=== PATIENT | female | born 1995 | race Caucasian/White ===

== ENCOUNTER 2018-10-10 16:07 | Emergency (ER) | payer OTHER ==
[2018-10-10 16:58] VITALS: BP 119/82; PULSE 85; RESP 18; TEMP 98.2
[2018-10-10] MEDS ORDERED: ACETAMINOPHEN TAB 325 MG TAB PO STA (19:11)
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
== END 2018-10-10 20:22 | disposition home or self-care (01) ==
LOC: EC 16:07
DX: R51 Headache (principal); R42 Dizziness and giddiness; J34.89 Other specified disorders of nose and nasal sinuses; F17.200 Nicotine dependence, unspecified, uncomplicated; Z88.8 Allergy status to other drugs, medicaments and biological substances; Z88.5 Allergy status to narcotic agent; Y04.8XXA Assault by other bodily force, initial encounter
CPT/HCPCS: 70110; 70160; 70450; 71046; 72125; 99284

== ENCOUNTER 2019-01-22 14:46 | Emergency (ER) | payer OTHER ==
[2019-01-22 14:55] VITALS: RESP 18
[2019-01-22 16:28] LABS: Basophils % (A) 0 %; Eosinophils # (A) 0.1 k/uL (0-0.7); Eosinophils % (A) 2 %; HCT 41.6 % (34.0-46.0); HGB 13.6 gm/dL (11.4-16.0); Lymphocytes # (A) 1.4 k/uL (1.0-4.8); Lymphocytes % (A) 26 %; MCHC 32.6 g/dL (31.0-37.0); MCV 85.9 fL (80.0-100.0); Monocytes # (A) 0.2 k/uL (0-1.0); Monocytes % (A) 5 %; Neutrophils # (A) 3.5 k/uL (1.3-7.7); Neutrophils % (A) 66 %; Platelet Count 303 k/uL (150-450); RBC 4.85 m/uL (3.80-5.40); RDW 13.7 % (11.5-15.5); WBC 5.4 k/uL (3.8-10.6)
[2019-01-22] MEDS ORDERED: SODIUM CHLORIDE 0.9% 500 ML 500 ML IV ONE (16:29)
[2019-01-22 16:37] LABS: ALT 12 U/L (9-52); AST 16 U/L (14-36); Albumin 4.2 g/dL (3.5-5.0); Alkaline Phosphatase 49 U/L (38-126); Amylase 92 U/L (30-110); Anion Gap 3 mmol/L; Blood Urea Nitrogen 7 mg/dL (7-17); Calcium 9.6 mg/dL (8.4-10.2); Carbon Dioxide 25 mmol/L (22-30); Chloride 110 mmol/L (98-107); Glucose 92 mg/dL (74-99); Lipase 164 U/L (23-300); Potassium 4.4 mmol/L (3.5-5.1); Sodium 138 mmol/L (137-145); Total Bilirubin 0.4 mg/dL (0.2-1.3); Total Protein 6.8 g/dL (6.3-8.2)
[2019-01-22 16:43] LABS: Appearance,Urine Clear (Clear); Bilirubin,Urine Negative (Negative); Blood,Urine Negative (Negative); Color,Urine Light Yellow; Glucose,Urine (UA) Negative (Negative); Ketones,Urine Negative (Negative); Leukocyte Esterase,Urine Moderate (Negative); Mucus,Urine Rare /hpf; Nitrite,Urine Negative (Negative); PH, Urine 7.5 (5.0-8.0); Protein,Urine Negative (Negative); RBC,Urine 1 /hpf (0-5); Specific Gravity,Urine 1.006 (1.001-1.035); Squamous Epithelial Cell,Urine 2 /hpf (0-4); Urobilinogen,Urine <2.0 mg/dL (<2.0); WBC,Urine 12 /hpf (0-5)
--- NOTE | 2019-01-22 16:56 | ED ---
Abdominal Pain HPI - General Chief Complaint: Abdominal Pain Stated Complaint: abdominal pain x 4 days Time Seen by Provider: 01/22/19 15:35 Source: patient Mode of arrival: ambulatory Limitations: no limitations - History of Present Illness Initial Comments: 23-year-old female presented for abdominal pain. Sensation she has had right upper, quadrant pain that came and went on . She states that this subsided and she had pain in her bellybutton mostly right-sided. Patient states she smoked some nausea she denies vomiting she denies diarrhea she states that she has been eating and drinking. Patient states she had a normal bowel movement she states her bowels have been increased. Patient states her last menstrual period was the end of December. Patient denies any vaginal bleeding or vaginal discharge or pelvic pain. Patient states she does have history of Medullary kidney disease with history of chronic nephrolithiasis however patient states that she has not had any back pain or pain that felt similar to when she had kidney stones in the past denies any dysuria urgency frequency or hematuria. She denies melena hematochezia fever chills or night sweats. We will give persisted today patient presented for evaluation. Patient does have history of previous cholecystectomy. Remaining review of system negative. Patient denies - Related Data Previous Rx's Medication Instructions Recorded Acetaminophen Tab [Tylenol] 1,000 mg PO TID 5 Days tablet 10/10/18 Cephalexin [Keflex] 500 mg PO Q12HR 5 Days #10 cap 01/22/19 Allergies Allergy/AdvReac Type Severity Reaction Status Date / Time famotidine [From Pepcid] Allergy Nausea & Verified 01/22/19 14:55 Vomiting morphine Allergy Nausea & Verified 01/22/19 14:55 Vomiting Review of Systems ROS Statement: Those systems with pertinent positive or pertinent negative responses have been documented in the HPI. ROS Other: All systems not noted in ROS Statement are negative. Past Medical History Additional Past Medical History / Comment(s): medulary sponge kidney disease History of Any Multi-Drug Resistant Organisms: None Reported Past Surgical History: Cholecystectomy Past Psychological History: Anxiety, Depression Smoking Status: Former smoker Past Alcohol Use History: Occasional Past Drug Use History: None Reported General Exam - General Exam Comments Initial Comments: General: The patient is awake and alert, in no distress, and does not appear acutely ill. Eye: Pupils are equal, round and reactive to light, extra-ocular movements are intact. No nystagmus. There is normal conjunctiva bilaterally. No signs of icterus. Ears, nose, mouth and throat: There are moist mucous membranes and no oral lesions. Neck: The neck is supple, there is no tenderness or JVD. Cardiovascular: There is a regular rate and rhythm. No murmur, rub or gallop is appreciated. Respiratory: Lungs are clear to auscultation, respirations are non-labored, breath sounds are equal. No wheezes, stridor, rales, or rhonchi. Gastrointestinal: Soft, non-distended, mild tenderness to palpation of the right mid aspect of abdomen near umbilicus. There is no direct periumbilical pain or right lower quadrant pain negative McBurney sign. Negative Hogan sign. No epigastric pain No organomegaly noted. There is no rebound or guarding present. No CVA tenderness. Bowel sounds are unremarkable. Musculoskeletal: Normal ROM, no tenderness. Strength 5/5. Sensation intact. Pulses equal bilaterally 2+. Neurological: A&O x 3. CN II-XII intact, There are no obvious motor or sensory deficits. Coordination appears grossly intact. Speech is normal. Skin: Skin is warm and dry and no rashes or lesions are noted. Psychiatric: Cooperative, appropriate mood & affect, normal judgment. Limitations: no limitations Course Vital Signs 01/22/19 01/22/19 14:52 19:00 Temperature 98.5 F 97.6 F Pulse Rate 78 60 Respiratory 18 18 Rate Blood Pressure 131/90 126/86 O2 Sat by Pulse 98 96 Oximetry Medical Decision Making - Medical Decision Making Well-appearing 23-year-old female presenting for abdominal pain x4 days. Patient is is mostly right sided mid abdomen. Upon examination there is very mild tenderness along the right side abdomen in line with the umbilicus. Patient showed no signs of rebound tenderness or guarding rigidity. No peritoneal irritation. CT revealed no acute process. Patient denies any infectious symptoms. Urinalysis revealed findings consistent with developing urinary tract infection. Patient be treated with Keflex 500 mg twice a day. Patient hCG negative. This time feel patient is stable for discharge with return parameters for increasing or worsening pain. Patient is agreeable care plan as well as discharged today. Patient was discharged appearing well. I discussed case with attending provider Dr. Almodovar who was agreeable with plan. Patient is to follow-up with primary care provider she verbalized understanding of the importance of follow-up - Lab Data Result diagrams: 01/22/19 16:16 01/22/19 16:16 Lab Results 01/22/19 01/22/19 01/22/19 Range/Units 16:16 16:16 16:29 WBC 5.4 (3.8-10.6) k/uL RBC 4.85 (3.80-5.40) m/uL Hgb 13.6 (11.4-16.0) gm/dL Hct 41.6 (34.0-46.0) % MCV 85.9 (80.0-100.0) fL MCH 28.0 (25.0-35.0) pg MCHC 32.6 (31.0-37.0) g/dL RDW 13.7 (11.5-15.5) % Plt Count 303 (150-450) k/uL Neutrophils % 66 % Lymphocytes % 26 % Monocytes % 5 % Eosinophils % 2 % Basophils % 0 % Neutrophils # 3.5 (1.3-7.7) k/uL Lymphocytes # 1.4 (1.0-4.8) k/uL Monocytes # 0.2 (0-1.0) k/uL Eosinophils # 0.1 (0-0.7) k/uL Basophils # 0.0 (0-0.2) k/uL Sodium 138 (137-145) mmol/L Potassium 4.4 (3.5-5.1) mmol/L Chloride 110 H (98-107) mmol/L Carbon Dioxide 25 (22-30) mmol/L Anion Gap 3 mmol/L BUN 7 (7-17) mg/dL Creatinine 0.66 (0.52-1.04) mg/dL Est GFR (CKD-EPI)AfAm >90 (>60 ml/min/1.73 sqM) Est GFR (CKD-EPI)NonAf >90 (>60 ml/min/1.73 sqM) Glucose 92 (74-99) mg/dL Calcium 9.6 (8.4-10.2) mg/dL Total Bilirubin 0.4 (0.2-1.3) mg/dL AST 16 (14-36) U/L ALT 12 (9-52) U/L Alkaline Phosphatase 49 (38-126) U/L Total Protein 6.8 (6.3-8.2) g/dL Albumin 4.2 (3.5-5.0) g/dL Amylase 92 (30-110) U/L Lipase 164 (23-300) U/L Urine Color Urine Appearance (Clear) Urine pH (5.0-8.0) Ur Specific [place] (1.001-1.035) Urine Protein (Negative) Urine Glucose (UA) (Negative) Urine Ketones (Negative) Urine Blood (Negative) Urine Nitrite (Negative) Urine Bilirubin (Negative) Urine Urobilinogen (<2.0) mg/dL Ur Leukocyte Esterase (Negative) Urine RBC (0-5) /hpf Urine WBC (0-5) /hpf Ur Squamous Epith Cells (0-4) /hpf Urine Mucus (None) /hpf Urine HCG, Qual Not Detected (Not Detectd) 01/22/19 Range/Units 16:29 WBC (3.8-10.6) k/uL RBC (3.80-5.40) m/uL Hgb (11.4-16.0) gm/dL Hct (34.0-46.0) % MCV (80.0-100.0) fL MCH (25.0-35.0) pg MCHC (31.0-37.0) g/dL RDW (11.5-15.5) % Plt Count (150-450) k/uL Neutrophils % % Lymphocytes % % Monocytes % % Eosinophils % % Basophils % % Neutrophils # (1.3-7.7) k/uL Lymphocytes # (1.0-4.8) k/uL Monocytes # (0-1.0) k/uL Eosinophils # (0-0.7) k/uL Basophils # (0-0.2) k/uL Sodium (137-145) mmol/L Potassium (3.5-5.1) mmol/L Chloride (98-107) mmol/L Carbon Dioxide (22-30) mmol/L Anion Gap mmol/L BUN (7-17) mg/dL Creatinine (0.52-1.04) mg/dL Est GFR (CKD-EPI)AfAm (>60 ml/min/1.73 sqM) Est GFR (CKD-EPI)NonAf (>60 ml/min/1.73 sqM) Glucose (74-99) mg/dL Calcium (8.4-10.2) mg/dL Total Bilirubin (0.2-1.3) mg/dL AST (14-36) U/L ALT (9-52) U/L Alkaline Phosphatase (38-126) U/L Total Protein (6.3-8.2) g/dL Albumin (3.5-5.0) g/dL Amylase (30-110) U/L Lipase (23-300) U/L Urine Color Light Yellow Urine Appearance Clear (Clear) Urine pH 7.5 (5.0-8.0) Ur Specific [place] 1.006 (1.001-1.035) Urine Protein Negative (Negative) Urine Glucose (UA) Negative (Negative) Urine Ketones Negative (Negative) Urine Blood Negative (Negative) Urine Nitrite Negative (Negative) Urine Bilirubin Negative (Negative) Urine Urobilinogen <2.0 (<2.0) mg/dL Ur Leukocyte Esterase Moderate H (Negative) Urine RBC 1 (0-5) /hpf Urine WBC 12 H (0-5) /hpf Ur Squamous Epith Cells 2 (0-4) /hpf Urine Mucus Rare H (None) /hpf Urine HCG, Qual (Not Detectd) Disposition Clinical Impression: Abdominal pain Disposition: HOME SELF-CARE Condition: Good Instructions (If sedation given, give patient instructions): Abdominal Pain (ED) Additional Instructions: Please use medication as discussed. Please follow-up with family doctor in the next 2 days. Please return to emergency room if the symptoms increase or worsen or for any other concerns. Prescriptions: Cephalexin [Keflex] 500 mg PO Q12HR 5 Days #10 cap Is patient prescribed a controlled substance at d/c from ED?: No Referrals: None,Stated [Primary Care Provider[facility] - [facility]2 days Time of Disposition: 18:22
--- NOTE | 2019-01-22 17:50 | CT ---
EXAMINATION TYPE: CT abdomen pelvis w con DATE OF EXAM: 01/22/2019 COMPARISON: None. HISTORY: ABDOMIAL PAIN X4 DAYS. CT DLP: 674.8 mGycm Automated exposure control for dose reduction was used. TECHNIQUE: Helical acquisition of images was performed from the lung bases through the pelvis. CONTRAST: Performed without Oral Contrast and with IV Contrast, patient injected with 100 mL of Isovue 300. FINDINGS: LUNG BASES: No significant abnormality. LIVER/GB: No significant abnormality. The gallbladder is surgically absent. PANCREAS: No significant abnormality. SPLEEN: No significant abnormality. ADRENALS: No significant abnormality. KIDNEYS: No significant abnormality. FREE AIR: No free air is visualized. RETROPERITONEAL ADENOPATHY: None visualized REPRODUCTIVE ORGANS: No significant abnormality URINARY BLADDER: No significant abnormality. PELVIC ADENOPATHY: None. OSSEOUS STRUCTURES: No significant abnormality. BOWEL: No significant abnormality. Normal appendix. IMPRESSION: NO FINDINGS TO EXPLAIN PATIENT'S ABDOMINAL PAIN.
[2019-01-22 19:01] VITALS: BP 126/86; PULSE 60; TEMP 97.6
== END 2019-01-22 19:01 | disposition home or self-care (01) ==
LOC: EC 14:46
DX: R10.11 Right upper quadrant pain (principal); R11.0 Nausea; Z87.891 Personal history of nicotine dependence; Z88.5 Allergy status to narcotic agent; Z88.8 Allergy status to other drugs, medicaments and biological substances; Z90.49 Acquired absence of other specified parts of digestive tract
CPT/HCPCS: 36415; 80053; 82150; 83690; 85025; 81001; 81025; 74177; 99284; 96360; Q9967

== ENCOUNTER 2019-03-15 16:45 | Emergency (ER) | payer OTHER ==
[2019-03-15 17:10] VITALS: BP 108/72; PULSE 67; RESP 16; TEMP 98.3
[2019-03-15] MEDS ORDERED: DEXAMETHASONE SOD PHOSPHATE 4 MG/ML 1 ML VIAL IM STA (17:40)
--- NOTE | 2019-03-15 18:06 | ED ---
ENT HPI - General Chief complaint: ENT Stated complaint: Throat pain Source: patient Mode of arrival: ambulatory Limitations: no limitations - History of Present Illness Initial comments: Patient is a 23-year-old female presents emergency Department with a sore throat. Patient reports waking up this morning with a sore throat and noticed with exudates on bilateral tonsils. Patient reports pain with swallowing but denies drooling or difficulty breathing. Patient denies cough, nausea, vomiting or diarrhea. Patient denies rhinorrhea, headache or otalgia. Patient does have a history of strep pharyngitis. Patient reports the pain is alleviated with saltwater washes. Patient denies taking any medication to alleviate the symptoms. - Related Data Previous Rx's Medication Instructions Recorded Acetaminophen Tab [Tylenol] 1,000 mg PO TID 5 Days tablet 10/10/18 Cephalexin [Keflex] 500 mg PO Q12HR 5 Days #10 cap 01/22/19 Amoxicillin 500 mg PO Q8H #30 capsule 03/15/19 Allergies Allergy/AdvReac Type Severity Reaction Status Date / Time famotidine [From Pepcid] Allergy Nausea & Verified 03/15/19 17:09 Vomiting morphine Allergy Nausea & Verified 03/15/19 17:09 Vomiting Review of Systems ROS Statement: Those systems with pertinent positive or pertinent negative responses have been documented in the HPI. ROS Other: All systems not noted in ROS Statement are negative. Past Medical History Additional Past Medical History / Comment(s): medulary sponge kidney disease History of Any Multi-Drug Resistant Organisms: None Reported Past Surgical History: Cholecystectomy Past Psychological History: Anxiety, Depression Smoking Status: Former smoker Past Alcohol Use History: Occasional Past Drug Use History: None Reported General Exam - General Exam Comments Initial Comments: General: Well-developed well-nourished distress HEENT: Normocephalic/atraumatic, PERLL, bilaterally enlarged and erythematous tonsils with white exudates Neck: Supple, nontender, trachea midline Chest/Lungs: Normal respirations, no signs of respiratory distress clear to auscultation bilaterally no wheezes, rales, rhonchi Cardiac: Regular rate and rhythm, normal S1-S2, no murmurs rubs or gallops Abdomen/GI: Soft nontender, bowel sounds equal or quadrant x4, no guarding, no rebound no CVA tenderness : Deferred Musculoskeletal: Nontender, full range of motion, no edema, strength equal bilaterally Skin: Warmth, no rashes or lesions, no cyanosis or diaphoresis Neurologic: AAO x 3, CN 2-12 intact, Psychiatric: Mood and affect normal, judgment normal Limitations: no limitations Course Vital Signs 03/15/19 17:07 Temperature 98.3 F Pulse Rate 67 Respiratory 16 Rate Blood Pressure 108/72 O2 Sat by Pulse 99 Oximetry Medical Decision Making - Medical Decision Making Patient is a 23-year-old female presenting to emergency Department with a sore throat. Patient does fit the [facility] criteria for strep pharyngitis. Rapid strep is also positive. Patient will be treated with a 10 day course of amoxicillin. Strict return parameters were thoroughly discussed with patient was understanding and agreeable. Patient advised to follow with primary care. Case discussed with physician. - Lab Data Lab Results 03/15/19 Range/Units 17:33 Group A Strep Rapid Positive A (Negative) Disposition Clinical Impression: Strep pharyngitis Disposition: HOME SELF-CARE Condition: Stable Instructions (If sedation given, give patient instructions): Strep Throat (ED), Strep Throat (DC) Additional Instructions: Please take prescribed medication as directed. Please follow-up with primary care. Please return to emergency department if symptoms worsen. Prescriptions: Amoxicillin 500 mg PO Q8H #30 capsule Is patient prescribed a controlled substance at d/c from ED?: No Referrals: None,Stated [Primary Care Provider] - 1-2 days Time of Disposition: 18:07
== END 2019-03-15 18:31 | disposition home or self-care (01) ==
LOC: EC 16:45
DX: J02.0 Streptococcal pharyngitis (principal); Q61.5 Medullary cystic kidney; Z87.891 Personal history of nicotine dependence; Z88.5 Allergy status to narcotic agent; Z88.8 Allergy status to other drugs, medicaments and biological substances
CPT/HCPCS: 87430; 99283; 96372; J1100

== ENCOUNTER 2019-09-26 15:25 | Emergency (ER) | payer OTHER ==
[2019-09-26 15:29] VITALS: BP 137/90; PULSE 73; RESP 16; TEMP 98.4
--- NOTE | 2019-09-26 16:14 | XR ---
EXAMINATION TYPE: XR knee complete RT DATE OF EXAM: 09/26/2019 COMPARISON: NONE HISTORY: Pain TECHNIQUE: Four views are submitted. FINDINGS: Joint spaces are preserved. Osseous structures are intact. No acute fracture seen. Lung the medial aspect of the proximal diaphysis the tibia there is a bony protuberance. Small amount of fluid in th e suprapatellar bursa. IMPRESSION: 1. No acute fracture or dislocation. Bony protuberance off the proximal medial aspect of the diaphys is right tibia. This could represent a osteochondroma. Recommend follow-up MRI. 2. Small amount of fluid in the suprapatellar bursa.
[2019-09-26] MEDS ORDERED: traMADol 50 MG STARTER PACK 3 TAB BTL PO STA (16:30)
--- NOTE | 2019-09-26 16:31 | ED ---
Lower Extremity Injury HPI - General Chief Complaint: Extremity Injury, Lower Stated Complaint: knee injury Time Seen by Provider: 09/26/19 15:37 Source: patient, RN notes reviewed Mode of arrival: ambulatory Limitations: no limitations - History of Present Illness Initial Comments: 23-year-old female presents emergency Department chief complaint of right knee pain. Patient states that she had her leg crossed over her left states that she was in this position for several hours states that she went to move and felt a pop. She complains of severe pain in the medial aspect and underneath over her patella. Patient denies any prior injuries. Patient states it is swollen. Patient states is painful to ambulate. Denies any Pain, swelling, discoloration - Related Data Previous Rx's Medication Instructions Recorded Acetaminophen Tab [Tylenol] 1,000 mg PO TID 5 Days tablet 10/10/18 Cephalexin [Keflex] 500 mg PO Q12HR 5 Days #10 cap 01/22/19 Amoxicillin 500 mg PO Q8H #30 capsule 03/15/19 Ibuprofen [Motrin] 600 mg PO Q8HR PRN #30 tab 09/26/19 Allergies Allergy/AdvReac Type Severity Reaction Status Date / Time famotidine [From Pepcid] Allergy Nausea & Verified 09/26/19 15:29 Vomiting morphine Allergy Nausea & Verified 09/26/19 15:29 Vomiting Review of Systems ROS Statement: Those systems with pertinent positive or pertinent negative responses have been documented in the HPI. ROS Other: All systems not noted in ROS Statement are negative. Past Medical History Past Medical History: Renal Disease Additional Past Medical History / Comment(s): medulary sponge kidney disease History of Any Multi-Drug Resistant Organisms: None Reported Past Surgical History: Cholecystectomy Past Psychological History: Anxiety, Depression Smoking Status: Former smoker Past Alcohol Use History: Occasional Past Drug Use History: None Reported General Exam Limitations: no limitations General appearance: alert, in no apparent distress Head exam: Present: atraumatic, normocephalic, normal inspection Eye exam: Present: normal appearance, PERRL, EOMI. Absent: scleral icterus, conjunctival injection, periorbital swelling Respiratory exam: Present: normal lung sounds bilaterally. Absent: respiratory distress, wheezes, rales, rhonchi, stridor Cardiovascular Exam: Present: regular rate, normal rhythm, normal heart sounds. Absent: systolic murmur, diastolic murmur, rubs, gallop, clicks Extremities exam: Present: other (Right knee full range of motion with moderate discomfort full extension, full flexion there is mild swelling on the medial aspect and over the patellar region no laxity noted). Absent: pedal edema, calf tenderness Neurological exam: Present: alert, oriented X3 Skin exam: Present: warm, dry, intact, normal color. Absent: rash Course Vital Signs 09/26/19 15:26 Temperature 98.4 F Pulse Rate 73 Respiratory 16 Rate Blood Pressure 137/90 O2 Sat by Pulse 99 Oximetry Medical Decision Making - Medical Decision Making X-rays shows possible cartilage or bony overgrowth and some mild effusion. Patient will follow-up with orthopedics for an MRI she was updated on these results and the importance of following up. Disposition Clinical Impression: Right knee sprain Disposition: HOME SELF-CARE Condition: Stable Instructions (If sedation given, give patient instructions): Knee Sprain (ED) Additional Instructions: Follow-up with orthopedics for possible MRI as discussed.Please return to the Emergency Department if symptoms worsen or any other concerns. Prescriptions: Ibuprofen [Motrin] 600 mg PO Q8HR PRN #30 tab PRN Reason: Pain Is patient prescribed a controlled substance at d/c from ED?: No Referrals: None,Stated [Primary Care Provider] - 1-2 days Harjit Slater DO [Doctor of Osteopathic Medicine] - 1-2 days Time of Disposition: 16:30
== END 2019-09-26 16:36 | disposition home or self-care (01) ==
LOC: EC 15:25
DX: S83.91XA Sprain of unspecified site of right knee, initial encounter (principal); Z87.891 Personal history of nicotine dependence; Z88.8 Allergy status to other drugs, medicaments and biological substances; Z88.5 Allergy status to narcotic agent
CPT/HCPCS: 99283

== ENCOUNTER 2019-10-10 07:07 | Emergency (ER) | payer OTHER ==
[2019-10-10 07:13] VITALS: BP 139/71; PULSE 85; RESP 18
[2019-10-10 07:30] VITALS: TEMP 102.3
[2019-10-10] MEDS ORDERED: IBUPROFEN 800 MG TAB PO STA (07:30)
[2019-10-10] MEDS ORDERED: ACETAMINOPHEN TAB 500 MG TAB PO STA (07:30)
--- NOTE | 2019-10-10 07:35 | ED ---
General Adult HPI - General Chief complaint: Upper Respiratory Infection Stated complaint: poss flu Time Seen by Provider: 10/10/19 07:10 Source: patient, RN notes reviewed, old records reviewed Mode of arrival: ambulatory Limitations: no limitations - History of Present Illness Initial comments: This is a 23-year-old female who comes to the emergency department stating that she thinks she has the flu because her son had it and since Wednesday morning she has been having body aches and fever. Patient states today she couldn't stand it body aches anymore so in emergency department. Patient states she did not any medication this morning. Patient does complain of a headache and body aches particularly in her arms and legs. Patient denies any stiff neck. Patient denies any difficulty breathing or shortness of breath per patient denies any chest pain. Patient denies any abdominal pain patient denies nausea vomiting diarrhea. Patient denies any areas of redness or swelling. - Related Data Previous Rx's Medication Instructions Recorded Acetaminophen Tab [Tylenol] 1,000 mg PO TID 5 Days tablet 10/10/18 Cephalexin [Keflex] 500 mg PO Q12HR 5 Days #10 cap 01/22/19 Amoxicillin 500 mg PO Q8H #30 capsule 03/15/19 Ibuprofen [Motrin] 600 mg PO Q8HR PRN #30 tab 09/26/19 Allergies Allergy/AdvReac Type Severity Reaction Status Date / Time famotidine [From Pepcid] Allergy Nausea & Verified 09/26/19 15:29 Vomiting morphine Allergy Nausea & Verified 09/26/19 15:29 Vomiting Review of Systems ROS Statement: Those systems with pertinent positive or pertinent negative responses have been documented in the HPI. ROS Other: All systems not noted in ROS Statement are negative. Past Medical History Past Medical History: Renal Disease Additional Past Medical History / Comment(s): medulary sponge kidney disease History of Any Multi-Drug Resistant Organisms: None Reported Past Surgical History: Cholecystectomy Past Psychological History: Anxiety, Depression Smoking Status: Former smoker Past Alcohol Use History: Occasional Past Drug Use History: None Reported General Exam - General Exam Comments Initial Comments: GENERAL: Patient is well-developed and well-nourished. Patient is nontoxic and well- hydrated and is in mild distress. ENT: Neck is soft and supple. No significant lymphadenopathy is noted. Oropharynx is clear. Moist mucous membranes. Neck has full range of motion without eliciting any pain. EYES: The sclera were anicteric and conjunctiva were pink and moist. Extraocular movements were intact and pupils were equal round and reactive to light. Eyelids were unremarkable. PULMONARY: Unlabored respirations. Good breath sounds bilaterally. No audible rales rhon chi or wheezing was noted. CARDIOVASCULAR: There is a regular rate and rhythm without any murmurs gallops or rubs. ABDOMEN: Soft and nontender with normal bowel sounds. SKIN: Skin is clear with no lesions or rashes and otherwise unremarkable. NEUROLOGIC: Patient is alert and oriented x3. Cranial nerves II through XII are grossly intact. Motor and sensory are also intact. Normal speech, volume and content. Symmetrical smile. MUSCULOSKELETAL: Normal extremities with adequate strength and full range of motion. LYMPHATICS: No significant lymphadenopathy is noted PSYCHIATRIC: Normal psychiatric evaluation. Limitations: no limitations Course Vital Signs 10/10/19 10/10/19 07:11 07:29 Temperature 100.3 F H 102.3 F H Pulse Rate 85 Respiratory 18 Rate Blood Pressure 139/71 O2 Sat by Pulse 97 Oximetry Medical Decision Making - Lab Data Lab Results 10/10/19 10/10/19 Range/Units 07:35 07:35 Influenza Type A RNA Not Detected (Not Detectd) Influenza Type B (PCR) Detected H (Not Detectd) Group A Strep Rapid Negative (Negative) Disposition Clinical Impression: Influenza B Disposition: HOME SELF-CARE Condition: Good Instructions (If sedation given, give patient instructions): Influenza (ED) Additional Instructions: Patient should take Motrin and Tylenol when necessary for pain or fever. Patient should return to emergency department as any difficulty breathing or any new symptoms. Is patient prescribed a controlled substance at d/c from ED?: No Referrals: None,Stated [Primary Care Provider] - 1-2 days Time of Disposition: 08:07
== END 2019-10-10 08:17 | disposition home or self-care (01) ==
LOC: EC 07:07
DX: J10.1 Influenza due to other identified influenza virus with other respiratory manifestations (principal); Z88.5 Allergy status to narcotic agent; Z88.8 Allergy status to other drugs, medicaments and biological substances; Z87.891 Personal history of nicotine dependence
CPT/HCPCS: 87081; 87430; 87502; 99284